=== PATIENT | female | born 1980 | race Caucasian/White ===

== ENCOUNTER 2017-11-25 09:21 | Emergency (ER) | payer OTHER ==
[~2017-11-25] VITALS: Ht 160 cm; Wt 79.4 kg
[~2017-11-25 09:21] MED LIST: ADVIL100 M2 PO; AMITRIPTYLINE H25 M2 PO; AMITRIPTYLINE H25 M3 PO; AMOXICILLIN 50500 M1 PO; APAP/CODEINE ELI5 M1 OR; AUGMENTIN 875875 M1 PO; BUSPIRONE HCL10 MG PO; CLONAZEPAM 1 MG1 M1 PO; COLACE100 MG PO; EFFEXOR XR150 MG PO; FLEXERIL PO; HYDROCODON-ACE1 EAC8 PO; HYDROXYZINE HCL25 M1 PO; IBUPROFEN 600600 M1 PO; MOBIC7.5 MG PO; NORCO 5-325 TA1 EACH PO; OMEPRAZOLE 20 M20 M1 PO; TRAZODONE 150150 M1 PO; VENLAFAXIN75 MG/1 T2 PO; WELLBUTRIN SR150 MG PO; XANAX XR2 MG PO
[2017-11-25] MEDS ORDERED: REMERON 30 MG T30 M1 PO (09:37)
[2017-11-25] MEDS ORDERED: CYMBALTA60 MG PO (09:38)
[2017-11-25 09:58] LABS: HEMATOCRIT 43.2 % (37.0-47.0); HEMOGLOBIN 14.6 gm/dL (12.0-15.0); MCH 29.6 pg (26.0-34.0); MCHC 33.7 g/dL (28.0-37.0); PLATELET COUNT 346 thou/uL (150-400); RBC 4.91 mil/uL (4.20-5.00); WBC 20.1 thou/uL (4.0-11.0)
[2017-11-25 10:01] LABS: CALCIUM 9.6 mg/dL (8.5-10.1); CREATININE 0.6 mg/dL (0.6-1.0); POTASSIUM 3.6 mmol/L (3.5-5.1)
[2017-11-25 10:07] LABS: ALBUMIN 3.2 g/dL (3.4-5.0); TOTAL BILIRUBIN 0.2 mg/dL (<0.1-1.0); TOTAL PROTEIN 7.9 g/dL (6.4-8.2)
[2017-11-25 10:20] LABS: ABSOLUTE NEUTROPHILS 16.9 thou/uL (1.4-8.2); METAMYELOCYTES 1 %; MYELOCYTES 1 %
[2017-11-25] MEDS ORDERED: NEBULIZER MISCELL (12:59)
[2017-11-25] MEDS ORDERED: PREDNISONE 20 M20 MG PO (12:59)
[2017-11-25] MEDS ORDERED: TESSALON PERLE100 MG PO (12:59)
[2017-11-25] MEDS ORDERED: ALBUTEROL2.5 MG/31 INH (12:59)
[2017-11-25] MEDS ORDERED: NORVASC5 MG PO (13:11)
== END 2017-11-25 13:40 | disposition home or self-care (01) ==
LOC: ER 09:21
PROVIDERS: Physician Assistant
DX: J20.9 Acute bronchitis, unspecified (principal); I10 Essential (primary) hypertension; F17.210 Nicotine dependence, cigarettes, uncomplicated; Z76.0 Encounter for issue of repeat prescription; Z71.6 Tobacco abuse counseling; F32.9 Major depressive disorder, single episode, unspecified; Z88.8 Allergy status to other drugs, medicaments and biological substances; Z88.5 Allergy status to narcotic agent; Z88.6 Allergy status to analgesic agent; Z90.49 Acquired absence of other specified parts of digestive tract

== ENCOUNTER 2018-06-30 10:53 | Emergency (ER) | payer OTHER ==
[~2018-06-30] VITALS: Ht 160 cm; Wt 83.9 kg
[~2018-06-30 10:53] MED LIST changes: +ALBUTEROL2.5 MG/31 INH; +CYMBALTA60 MG PO; +NEBULIZER MISCELL; +NORVASC5 MG PO; +PREDNISONE 20 M20 MG PO; +REMERON 30 MG T30 M1 PO; +TESSALON PERLE100 MG PO
[2018-06-30] MEDS ORDERED: PAXIL10 MG PO (11:13)
[2018-06-30] MEDS ORDERED: OMEPRAZOLE40 MG PO (11:13)
[2018-06-30] MEDS ORDERED: NEURONTIN600 MG PO (11:13)
[2018-06-30] MEDS ORDERED: RISPERDAL2 MG PO (11:13)
[2018-06-30 11:15] LABS: URINE BILIRUBIN NEGATIVE (Negative); URINE BLOOD TRACE (Negative); URINE CLARITY CLEAR; URINE COLOR YELLOW; URINE GLUCOSE-RANDOM* NEGATIVE (Negative); URINE KETONES NEGATIVE (Negative); URINE LEUKOCYTES-REFLEX TRACE (Negative); URINE NITRITE-REFLEX NEGATIVE (Negative); URINE PROTEIN (DIPSTICK) NEGATIVE (Negative); URINE UROBILINOGEN 0.2 E.U./dl (0.2-1.0)
[2018-06-30 11:32] LABS: HEMATOCRIT 38.1 % (37.0-47.0); HEMOGLOBIN 12.9 gm/dL (12.0-15.0); MCH 30.4 pg (26.0-34.0); MCHC 33.8 g/dL (28.0-37.0); PLATELET COUNT 267 thou/uL (150-400); RBC 4.24 mil/uL (4.20-5.00); RDW 14.4 % (10.5-14.5); WBC 9.6 thou/uL (4.0-11.0)
[2018-06-30 11:40] LABS: CALCIUM 9.3 mg/dL (8.5-10.1); CREATININE 0.7 mg/dL (0.6-1.0); POTASSIUM 3.7 mmol/L (3.5-5.1)
[2018-06-30 11:46] LABS: ALBUMIN 3.4 g/dL (3.4-5.0); TOTAL BILIRUBIN 0.2 mg/dL (<0.1-1.0); TOTAL PROTEIN 7.6 g/dL (6.4-8.2)
[2018-06-30 13:00] LABS: ABSOLUTE NEUTROPHILS 6.1 thou/uL (1.4-8.2); ATYPICAL LYMPHS 1 %; MYELOCYTES 2 %
[2018-06-30] MEDS ORDERED: ONDANSETRON HCL4 M2 PO (13:56)
[2018-06-30] MEDS ORDERED: ZANTAC 150MG T150 MG PO (13:56)
[2018-06-30] MEDS ORDERED: PROTONIX 20 MG20 M1 PO (13:56)
[2018-06-30 14:42] VITALS: BP 129/93
== END 2018-06-30 14:43 | disposition home or self-care (01) ==
LOC: ER 10:53
PROVIDERS: Physician Assistant
DX: R16.0 Hepatomegaly, not elsewhere classified (principal); R74.0 Nonspecific elevation of levels of transaminase and lactic acid dehydrogenase [LDH]; R94.5 Abnormal results of liver function studies; R10.12 Left upper quadrant pain; R10.13 Epigastric pain; F32.9 Major depressive disorder, single episode, unspecified; F17.210 Nicotine dependence, cigarettes, uncomplicated; Z88.8 Allergy status to other drugs, medicaments and biological substances; Z88.5 Allergy status to narcotic agent; Z88.6 Allergy status to analgesic agent; Z90.49 Acquired absence of other specified parts of digestive tract

== ENCOUNTER 2018-07-18 17:30 | Emergency (ER) | payer OTHER ==
[~2018-07-18] VITALS: Ht 160 cm; Wt 88.9 kg
[~2018-07-18 17:30] MED LIST changes: +NEURONTIN600 MG PO; +OMEPRAZOLE40 MG PO; +ONDANSETRON HCL4 M2 PO; +PAXIL10 MG PO; +PROTONIX 20 MG20 M1 PO; +RISPERDAL2 MG PO; +ZANTAC 150MG T150 MG PO
[2018-07-18 18:25] LABS: HEMATOCRIT 40.5 % (37.0-47.0); HEMOGLOBIN 13.5 gm/dL (12.0-15.0); MCH 30.3 pg (26.0-34.0); MCHC 33.4 g/dL (28.0-37.0); MCV 90.7 fL (80.0-100.0); PLATELET COUNT 298 thou/uL (150-400); RBC 4.46 mil/uL (4.20-5.00); RDW 14.5 % (10.5-14.5); WBC 11.1 thou/uL (4.0-11.0)
[2018-07-18 18:26] LABS: URINE BILIRUBIN NEGATIVE (Negative); URINE BLOOD TRACE (Negative); URINE CLARITY CLEAR; URINE COLOR YELLOW; URINE GLUCOSE-RANDOM* NEGATIVE (Negative); URINE KETONES NEGATIVE (Negative); URINE LEUKOCYTES-REFLEX TRACE (Negative); URINE NITRITE-REFLEX NEGATIVE (Negative); URINE PROTEIN (DIPSTICK) NEGATIVE (Negative); URINE UROBILINOGEN 0.2 E.U./dl (0.2-1.0)
[2018-07-18 18:33] LABS: CALCIUM 10.2 mg/dL (8.5-10.1); CREATININE 0.7 mg/dL (0.6-1.0); POTASSIUM 3.5 mmol/L (3.5-5.1)
[2018-07-18 18:39] LABS: ALBUMIN 3.7 g/dL (3.4-5.0); TOTAL BILIRUBIN 0.3 mg/dL (<0.1-1.0); TOTAL PROTEIN 8.2 g/dL (6.4-8.2)
[2018-07-18 19:20] LABS: ABSOLUTE NEUTROPHILS 7.7 thou/uL (1.4-8.2); ANISOCYTOSIS 1+; METAMYELOCYTES 2 %; POLYCHROMASIA OCCASIONAL
[2018-07-18 21:01] VITALS: BP 131/80
== END 2018-07-18 21:02 | disposition home or self-care (01) ==
LOC: ER 17:30
PROVIDERS: Emergency Medicine
DX: R10.12 Left upper quadrant pain (principal); F17.210 Nicotine dependence, cigarettes, uncomplicated; Z90.49 Acquired absence of other specified parts of digestive tract; Z87.01 Personal history of pneumonia (recurrent); Z88.5 Allergy status to narcotic agent; Z88.8 Allergy status to other drugs, medicaments and biological substances

== ENCOUNTER 2020-01-21 17:15 | Emergency (ER) | payer OTHER ==
[~2020-01-21] VITALS: Ht 165.1 cm; Wt 68.0 kg
[2020-01-21] MEDS ORDERED: PREDNISONE 20 M20 MG PO (21:21)
[2020-01-21] MEDS ORDERED: PROMETH-CODEIN 65 ML PO (21:21)
[2020-01-21 21:35] VITALS: BP 145/74
== END 2020-01-21 21:39 | disposition home or self-care (01) ==
LOC: ER 17:15
DX: U07.1 COVID-19 (principal); R05 Cough; R19.7 Diarrhea, unspecified; R11.0 Nausea; F17.210 Nicotine dependence, cigarettes, uncomplicated; Z79.899 Other long term (current) drug therapy; Z88.5 Allergy status to narcotic agent; Z88.8 Allergy status to other drugs, medicaments and biological substances

== ENCOUNTER 2020-01-29 10:30 | Emergency (ER) | payer OTHER ==
[~2020-01-29] VITALS: Ht 160 cm; Wt 78.5 kg
[~2020-01-29 10:30] MED LIST changes: +PROMETH-CODEIN 65 ML PO
[2020-01-29] MEDS ORDERED: PAXIL20 MG PO (11:05)
[2020-01-29] MEDS ORDERED: LORAZEPAM 1 MG T1 MG PO (11:06)
[2020-01-29] MEDS ORDERED: SUPER THERAVIT1 EACH PO (11:07)
[2020-01-29] MEDS ORDERED: ASA81BEC PO (11:07)
[2020-01-29] MEDS ORDERED: FLEXERIL PO (11:07)
[2020-01-29 11:20] LABS: BE(vivo) -4.3 mmol/L (-2 to +3); HCO3 20.4 mmol/L (22.0-26.0); PCO2 36.1 mmHg (35.0-45.0); PO2 78.5 mmHg (80.0-100.0); pH 7.369 (7.360-7.450); sO2 95.4 % (92.0-98.0)
[2020-01-29 11:25] LABS: ABSOLUTE NEUTROPHILS 6.4 thou/uL (1.4-8.2); HEMATOCRIT 38.5 % (37.0-47.0); HEMOGLOBIN 12.8 gm/dL (12.0-15.0); LYMPHOCYTES 22.1 % (24.0-44.0); MCH 28.8 pg (26.0-34.0); MCHC 33.3 g/dL (28.0-37.0); MCV 86.4 fL (80.0-100.0); MONOCYTES 3.7 % (1.0-8.0); PLATELET COUNT 276 thou/uL (150-400); POLYS 72.2 % (36.0-66.0); RBC 4.45 mil/uL (4.20-5.00); RDW 14.5 % (10.5-14.5); WBC 8.8 thou/uL (4.0-11.0)
[2020-01-29 11:35] LABS: ANION GAP 10 mmol/L (7-16); BUN 5 mg/dL (7-18); CALCIUM 9.5 mg/dL (8.5-10.1); CHLORIDE 102 mmol/L (98-107); CO2 25 mmol/L (21-32); CREATININE 0.8 mg/dL (0.6-1.0); GLUCOSE 242 mg/dL (74-106); POTASSIUM 3.4 mmol/L (3.5-5.1); SODIUM 137 mmol/L (136-145)
[2020-01-29 11:44] LABS: ALBUMIN 3.5 g/dL (3.4-5.0); DIRECT BILIRUBIN < 0.1 mg/dL (<0.1-0.2); SGOT 58 U/L (15-37); SGPT 91 U/L (14-59); TOTAL BILIRUBIN 0.3 mg/dL (0.2-1.0); TOTAL PROTEIN 7.6 g/dL (6.4-8.2); TROPONIN-I <0.06 ng/mL (<0.06)
--- NOTE | 2020-01-29 11:57 | EKG ---
[address] [address] ELECTROCARDIOGRAM REPORT Name: ASIF PEREZ Room #: [facility]#: [id number] Admission: 01/29/20 Attend Phys: Discharge: Date of : 78 Report #: [id number] [facility] ED Test Date: 2020-01-29 Test Time: 10:56:08 Pat Name: ASIF PEREZ Department: Room: Gender: F Vehicle Service Agent: MARIEL : 1980 Requested By: Frank Cooley Order Number: [id number] MD: Sage Meadows Measurements Intervals Muse Rate: 94 P: 44 SC: 167 QRS: 25 QRSD: 107 T: 6 QT: 369 QTc: 462 Interpretive Statements Sinus rhythm Probable left atrial enlargement No previous ECG available for comparison Electronically Signed On 01-29-2020 11:57:02 OFFICE EXECUTIVE by Sage Meadows [email or web address] <ELECTRONICALLY SIGNED> By: Sage Meadows MD, [facility] 01/29/20 1157 1056 1056 Sage Meadows MD, FACC /EPI
[2020-01-29 13:49] VITALS: BP 113/81
== END 2020-01-29 13:50 | disposition home or self-care (01) ==
LOC: ER 10:30
PROVIDERS: Emergency Medicine
DX: U07.1 COVID-19 (principal); F17.210 Nicotine dependence, cigarettes, uncomplicated; F32.9 Major depressive disorder, single episode, unspecified; Z90.49 Acquired absence of other specified parts of digestive tract; Z98.51 Tubal ligation status; Z79.899 Other long term (current) drug therapy; Z79.82 Long term (current) use of aspirin; Z88.8 Allergy status to other drugs, medicaments and biological substances; Z88.5 Allergy status to narcotic agent